=== PATIENT | male | born 1975 | race Caucasian/White ===

== ENCOUNTER → 2017-01-23 | Outpatient (CLI) | payer BC ==
[~2017-01-23] MED LIST: CARAFATE1 GM PO; CRESTOR10 MG PO; FLAGYL500 MG PO; KLONOPIN TAB 00.5 MG PO; PROTONIX40 MG PO; TENORMIN 50 MG50 MG PO; TYLENOL 325MG325 MG PO; ZANAFLEX4 MG PO; ZYLOPRIM 100 M100 MG PO
== END ==
LOC: US 07:26
DX: R94.5 Abnormal results of liver function studies (principal); K76.0 Fatty (change of) liver, not elsewhere classified
CPT/HCPCS: 76705

== ENCOUNTER → 2017-02-01 | Outpatient (CLI) | payer BC | LOC: NM 01-01 10:30 | DX: R07.89 Other chest pain (principal); R78.5 Finding of other psychotropic drug in blood; E66.01 Morbid (severe) obesity due to excess calories; R60.9 Edema, unspecified; I10 Essential (primary) hypertension | CPT/HCPCS: 78452; 93017; A9502 ==

== ENCOUNTER → 2021-11-25 | Outpatient (CLI) | payer BC ==
[~2021-11-25] MED LIST changes: +NORCO 5-325 TA1 EACH PO; +VITAMIN D350000 UNIT PO
== END ==
LOC: KOH-I 08:07
DX: K57.92 Diverticulitis of intestine, part unspecified, without perforation or abscess without bleeding (principal); R10.13 Epigastric pain; J01.00 Acute maxillary sinusitis, unspecified; M47.816 Spondylosis without myelopathy or radiculopathy, lumbar region
CPT/HCPCS: 72100

== ENCOUNTER → 2022-04-14 | Outpatient (CLI) | payer BC | LOC: KOH-I 08:11 | DX: M54.50 Low back pain, unspecified (principal); M54.16 Radiculopathy, lumbar region; N20.0 Calculus of kidney; M47.816 Spondylosis without myelopathy or radiculopathy, lumbar region | CPT/HCPCS: 72110 ==